=== PATIENT | female | born 1970 | race Caucasian/White ===

== ENCOUNTER 2022-10-27 10:42 | Outpatient (CLI) | payer OTHER | END 2022-10-27 10:43 | disposition home or self-care (01) | LOC: BICMRI 10:42 | PROVIDERS: ATTEND Family Medicine | DX: M47.22 Other spondylosis with radiculopathy, cervical region (principal); M54.50 Low back pain, unspecified; G89.29 Other chronic pain; M50.122 Cervical disc disorder at C5-C6 level with radiculopathy; M48.061 Spinal stenosis, lumbar region without neurogenic claudication; M43.16 Spondylolisthesis, lumbar region; M89.38 Hypertrophy of bone, other site | CPT/HCPCS: 72141; 72148 ==